=== PATIENT | female | born 1960 | race Caucasian/White ===

== ENCOUNTER 2016-10-29 12:18 | Day surgery (SDC) | payer OTHER ==
[~2016-10-29] VITALS: Ht 167.6 cm; Wt 155.1 kg
[~2016-10-29 12:18] MED LIST: ABILIFY2 MG PO; ACTOS15 MG PO; ADVAIR 250/501 DISK IH; ALDACTAZIDE 251 EACH PO; ARIPIPRAZOLE2 MG PO; ASMANEX TW200 MICRO1 IH; CHONDROITIN SU250 MG PO; DIOVAN160 MG PO; ERGOCALCIF50000 UNIT PO; FLEXERIL5 MG PO; FLOVENT 22120 INHALA IH; GLUCOSAMINE1000 MG PO; IPRATR-ALBUTEROL3 ML IH; LAMICTAL25 MG PO; LAMOTRIGINE25 MG PO; LYRICA150 MG PO; LYRICA75 MG PO; METFORMIN HCL500 MG PO; METHOCARBAMOL500 MG PO; NOVOLOG MI100 UNIT/M PO; NOVOLOG PE100 UNITS/ SC; OXAYDO5 MG PO; PROAIR HFA8.5 GM IH; ROXICODONE5 MG PO; SINGULAIR10 MG PO; SPIRONOLACT/HC1 EACH PO; SPIRONOLACTONE50 MG PO; TRADJENTA5 MG PO; TRAMADOL HCL50 MG PO; VITAMIN D22000 UNIT PO
[2016-10-29 12:59] LABS: POINT-OF-CARE METER ID UU13113694
== END 2016-10-29 14:10 | disposition home or self-care (01) ==
LOC: PAIN 12:18 → SDC 13:00 → PAIN 14:10
PROVIDERS: Anesthesiology Pain Medicine
DX: M16.11 Unilateral primary osteoarthritis, right hip (principal); M47.26 Other spondylosis with radiculopathy, lumbar region; I10 Essential (primary) hypertension; E11.65 Type 2 diabetes mellitus with hyperglycemia; J45.909 Unspecified asthma, uncomplicated; E66.01 Morbid (severe) obesity due to excess calories; Z68.43 Body mass index [BMI] 50.0-59.9, adult; G47.33 Obstructive sleep apnea (adult) (pediatric); Z88.2 Allergy status to sulfonamides; Z87.891 Personal history of nicotine dependence; Z79.4 Long term (current) use of insulin; Z79.84 Long term (current) use of oral hypoglycemic drugs; Z79.891 Long term (current) use of opiate analgesic; Z79.899 Other long term (current) drug therapy
CPT/HCPCS: 82948; J1030; J3010; S0020

== ENCOUNTER → 2016-11-25 | Outpatient (CLI) | payer OTHER | END | disposition home or self-care (01) | LOC: NUC 07:24 | DX: R94.6 Abnormal results of thyroid function studies (principal) | CPT/HCPCS: 78014; 78999; A9512; A9531 ==

== ENCOUNTER → 2016-12-23 | Outpatient (CLI) | payer OTHER ==
[~2016-12-23] VITALS: Ht 172.7 cm; Wt 157.2 kg
[2016-12-23 12:00] LABS: POINT-OF-CARE METER ID UU14107333
[2016-12-23 12:55] LABS: POINT-OF-CARE METER ID UU13113819
== END | disposition home or self-care (01) ==
LOC: AMB 11:13
PROVIDERS: Internal Medicine
PROC: 0DJD8ZZ Inspection of Lower Intestinal Tract, Via Natural or Artificial Opening Endoscopic (ICD-10-PCS; principal; 2016-12-23)
DX: Z12.11 Encounter for screening for malignant neoplasm of colon (principal); K64.8 Other hemorrhoids
CPT/HCPCS: 82948

== ENCOUNTER 2017-02-04 13:46 | Day surgery (SDC) | payer OTHER ==
[~2017-02-04] VITALS: Ht 172.7 cm; Wt 158.7 kg
[2017-02-04 15:05] LABS: POINT-OF-CARE METER ID UU14174212
== END 2017-02-04 16:20 | disposition home or self-care (01) ==
LOC: PAIN 13:46 → SDC 14:30 → PAIN 14:30
PROVIDERS: Anesthesiology Pain Medicine
DX: M16.11 Unilateral primary osteoarthritis, right hip (principal); M47.26 Other spondylosis with radiculopathy, lumbar region; E04.1 Nontoxic single thyroid nodule; M62.838 Other muscle spasm; G62.9 Polyneuropathy, unspecified; I10 Essential (primary) hypertension; E11.9 Type 2 diabetes mellitus without complications; E66.01 Morbid (severe) obesity due to excess calories; Z68.43 Body mass index [BMI] 50.0-59.9, adult; F31.81 Bipolar II disorder; J45.40 Moderate persistent asthma, uncomplicated; G47.33 Obstructive sleep apnea (adult) (pediatric); E55.9 Vitamin D deficiency, unspecified; Z87.891 Personal history of nicotine dependence; Z79.84 Long term (current) use of oral hypoglycemic drugs
CPT/HCPCS: 82948; J1030; J2250; J3010; S0020

== ENCOUNTER 2017-04-10 10:29 | Day surgery (SDC) | payer OTHER ==
[~2017-04-10] VITALS: Ht 172.7 cm; Wt 153.3 kg
[~2017-04-10 10:29] MED LIST changes: +CYANOCOBALAM1000 MCG PO; +ENZYME DIGEST1 EACH PO; +FISH OIL 11600 MG/5 PO; +GLUCOSAMINE CH1 EAC2 PO; +MULTIVITAMIN1 EAC2 PO; +PROBIOTIC 5 BI1 EACH PO; +VITAMIN D35000 UNIT PO
[2017-04-10 11:08] LABS: POINT-OF-CARE METER ID UU14174212
== END 2017-04-10 12:42 | disposition home or self-care (01) ==
LOC: PAIN 10:29 → SDC 11:15 → PAIN 11:15
PROVIDERS: Anesthesiology Pain Medicine
DX: M16.11 Unilateral primary osteoarthritis, right hip (principal); M54.16 Radiculopathy, lumbar region; I10 Essential (primary) hypertension; G47.33 Obstructive sleep apnea (adult) (pediatric); M47.812 Spondylosis without myelopathy or radiculopathy, cervical region; E11.9 Type 2 diabetes mellitus without complications; J45.909 Unspecified asthma, uncomplicated; Z87.891 Personal history of nicotine dependence; Z79.4 Long term (current) use of insulin
CPT/HCPCS: 82948; J1030; S0020

== ENCOUNTER 2017-04-10 21:16 | Inpatient (IN) | payer OTHER ==
[~2017-04-10] VITALS: Ht 172.7 cm; Wt 153.0 kg
[2017-04-11 07:47] LABS: POINT-OF-CARE METER ID UU14174212
[2017-04-11 07:58] VITALS: BP 113/57
[2017-04-11 13:44] LABS: POINT-OF-CARE METER ID UU13113675
[2017-04-11 15:07] VITALS: BP 143/65
[2017-04-11 17:54] LABS: POINT-OF-CARE METER ID UU14208750
[2017-04-11 19:20] VITALS: BP 156/69
[2017-04-11 23:35] VITALS: BP 167/72
[2017-04-12 00:41] LABS: POINT-OF-CARE METER ID UU14208750
[2017-04-12 03:37] VITALS: BP 136/63
[2017-04-12 06:54] LABS: POINT-OF-CARE METER ID UU14208750
[2017-04-12 07:45] LABS: BASOPHIL COUNT 0.1 K/uL (0-0.1); EOSINOPHIL (%) 0.6 % (0-5); EOSINOPHIL COUNT 0.1 K/uL (0-0.3); HEMATOCRIT 39.6 % (36.0-46.0); IMMATURE GRANULOCYTE (%) 0.6 % (0.0-0.7); IMMATURE GRANULOCYTE COUNT 0.1 K/uL; INSTRUMENT ABS NEUTROPHIL CT 7.7 K/uL; LYMPHOCYTE COUNT 2.7 K/uL (1.0-2.8); MCH 27.7 PG (29.0-34.0); MCHC 32.1 G/DL (30.0-36.0); MCV 86.3 FL (83-99); MEAN PLAT.VOLUME 10.1 uM^3 (9.5-12.4); MONOCYTE (%) 7.8 % (3-12); MONOCYTE COUNT 0.9 K/uL (0-0.8); NEUTROPHIL (%) 66.9 % (45-76); NEUTROPHIL COUNT 7.7 K/uL (1.8-6.4); PLATELET COUNT 245 K/uL (156-360); RBC DIS.WIDTH-CV 14.3 % (11.8-14.6); RBC DIS.WIDTH-SD 45.3 % (39-53); RED BLOOD COUNT 4.59 M/uL (3.80-5.20); WHITE BLOOD COUNT 11.5 K/uL (4.1-10.2)
[2017-04-12 08:54] VITALS: BP 160/70
== END 2017-04-12 10:29 | disposition home or self-care (01) | DRG 621 ==
LOC: ENRESERV 21:16 → 2SOUTH 04-11 06:50 → ENRESERV 04-11 10:11 → 2SOUTH 04-11 11:00 → ENRESERV 04-11 14:05 → 2EAST 04-11 14:50 → ENRESERV 04-11 14:54 → 2SOUTH 04-11 16:13 → 2EAST 04-12 10:29
PROVIDERS: Surgery
PROC: 0DB64Z3 Excision of Stomach, Percutaneous Endoscopic Approach, Vertical (ICD-10-PCS; principal; 2017-04-11)
DX: E66.01 Morbid (severe) obesity due to excess calories (principal); Z68.43 Body mass index [BMI] 50.0-59.9, adult; I10 Essential (primary) hypertension; F31.9 Bipolar disorder, unspecified; J45.909 Unspecified asthma, uncomplicated; E11.9 Type 2 diabetes mellitus without complications; F25.9 Schizoaffective disorder, unspecified; E55.9 Vitamin D deficiency, unspecified; G47.30 Sleep apnea, unspecified; E04.2 Nontoxic multinodular goiter
CPT/HCPCS: 82948; 85025; 94640; 94640 76; 99202; C9113; J0131; J1170; J1580; J1644; J1650; J1815; J2250; J2405; J2550; J2710; J2765; J3010; J3480; J7050; J7120; S0020

== ENCOUNTER 2017-06-23 11:34 | Day surgery (SDC) | payer OTHER ==
[~2017-06-23] VITALS: Ht 172.7 cm; Wt 139.7 kg
== END 2017-06-23 12:15 | disposition home or self-care (01) ==
LOC: PAIN 11:34 → SDC 12:30
PROVIDERS: Anesthesiology Pain Medicine
DX: M16.0 Bilateral primary osteoarthritis of hip (principal); M47.816 Spondylosis without myelopathy or radiculopathy, lumbar region; M54.16 Radiculopathy, lumbar region; M25.561 Pain in right knee; M25.562 Pain in left knee; M79.1 Myalgia; G89.29 Other chronic pain; I10 Essential (primary) hypertension; G47.33 Obstructive sleep apnea (adult) (pediatric); J45.20 Mild intermittent asthma, uncomplicated; E66.01 Morbid (severe) obesity due to excess calories; Z68.42 Body mass index [BMI] 45.0-49.9, adult; Z79.891 Long term (current) use of opiate analgesic; Z87.891 Personal history of nicotine dependence; Z88.2 Allergy status to sulfonamides; Z88.1 Allergy status to other antibiotic agents
CPT/HCPCS: 82948; J1030; S0020

== ENCOUNTER 2017-07-03 09:56 | Day surgery (SDC) | payer OTHER ==
[~2017-07-03] VITALS: Ht 172.7 cm; Wt 138.7 kg
== END 2017-07-03 11:20 | disposition home or self-care (01) ==
LOC: PAIN 09:56 → SDC 11:00 → PAIN 11:20
PROVIDERS: Anesthesiology Pain Medicine
DX: M47.816 Spondylosis without myelopathy or radiculopathy, lumbar region (principal); M54.16 Radiculopathy, lumbar region; M79.1 Myalgia; E11.40 Type 2 diabetes mellitus with diabetic neuropathy, unspecified; E66.01 Morbid (severe) obesity due to excess calories; Z68.42 Body mass index [BMI] 45.0-49.9, adult; I10 Essential (primary) hypertension; J45.40 Moderate persistent asthma, uncomplicated; E55.9 Vitamin D deficiency, unspecified; M16.10 Unilateral primary osteoarthritis, unspecified hip; G89.29 Other chronic pain; Z79.891 Long term (current) use of opiate analgesic; Z88.2 Allergy status to sulfonamides; Z87.891 Personal history of nicotine dependence
CPT/HCPCS: 82948; J1030; J2250; J3010; S0020

== ENCOUNTER 2017-11-18 09:52 | Day surgery (SDC) | payer OTHER ==
[~2017-11-18] VITALS: Ht 172.7 cm; Wt 124.7 kg
[~2017-11-18 09:52] MED LIST changes: +CALCIUM CITRAT1 EA14 PO; +CHEWABLE-VITE1 EACH PO
== END 2017-11-18 11:30 | disposition home or self-care (01) ==
LOC: PAIN 09:52 → SDC 10:30 → PAIN 10:30
PROVIDERS: Anesthesiology Pain Medicine
PROC: 3E0U33Z Introduction of Anti-inflammatory into Joints, Percutaneous Approach (ICD-10-PCS; principal; 2017-11-18)
PROC: 3E0U3NZ Introduction of Analgesics, Hypnotics, Sedatives into Joints, Percutaneous Approach (ICD-10-PCS; principal; 2017-11-18)
PROC: BQ101ZZ Fluoroscopy of Right Hip using Low Osmolar Contrast (ICD-10-PCS; principal; 2017-11-18)
DX: M16.11 Unilateral primary osteoarthritis, right hip (principal); I10 Essential (primary) hypertension; E11.9 Type 2 diabetes mellitus without complications; J45.909 Unspecified asthma, uncomplicated; G47.33 Obstructive sleep apnea (adult) (pediatric); Z88.0 Allergy status to penicillin; Z88.2 Allergy status to sulfonamides; Z88.8 Allergy status to other drugs, medicaments and biological substances; Z91.040 Latex allergy status; Z79.84 Long term (current) use of oral hypoglycemic drugs; Z79.891 Long term (current) use of opiate analgesic
CPT/HCPCS: 82948; J1030; S0020